=== PATIENT | female | born 1990 | race Caucasian/White ===

== ENCOUNTER 2020-03-11 19:00 | Emergency (ER) | payer BC ==
[2020-03-11] MEDS ORDERED: IBUPROFEN 600 MG TABLET PO ONE (19:10)
[2020-03-11] MEDS ORDERED: DIPH/PERTUSS(ACELL)/TETANUS VAC/PF 0.5 ML SYR (>=10YO) IM ONE (19:11)
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
[2020-03-11] MEDS ORDERED: LIDOCAINE 1% INJ-PF (10 MG/ML) 30 ML SDV INJ ONE (22:49)
[2020-03-11] MEDS ORDERED: CEPHALEXIN 500 MG CAPSULE PO ONE (23:00)
[2020-03-11] MEDS ORDERED: HYDROCODONE/ACETAMINOPHEN 5-325 MG TABLET PO ONE (23:01)
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
[2020-03-11 23:40] VITALS: BP 123/81
== END 2020-03-11 23:42 | disposition home or self-care (01) ==
LOC: ER 19:00
DX: S61.412A Laceration without foreign body of left hand, initial encounter (principal); W45.8XXA Other foreign body or object entering through skin, initial encounter; F17.210 Nicotine dependence, cigarettes, uncomplicated
CPT/HCPCS: 99284; 90471; 73130; 90715; 12001; J3490